=== PATIENT | male | born 1960 | race Caucasian/White ===

== ENCOUNTER 2019-05-27 23:26 | Inpatient (IN) | payer OTHER ==
[~2019-05-27] VITALS: Ht 177.8 cm; Wt 77.6 kg
--- NOTE | ~2019-05-27 | EKG ---
[place] [address] ELECTROCARDIOGRAM REPORT Name: MARCY ABDI Room: [address] ADM IN M.R.#: [id number] Admission: 05/28/19 Attend Phys: Tony Bauer MD Discharge: Date of : 62 Report #: [id number] THIS REPORT FOR: //name// [facility] ED Test Date: 2019-05-28 Test Time: 01:46:48 Pat Name: MARCY ABDI Department: Room: [address] Gender: M Clinical Services Specialist: SIENNA : 1960 Requested By: Leonila Zamudio Order Number: [id number] Reading MD: Measurements Intervals [place] Rate: 91 P: -4 MD: 186 QRS: -35 QRSD: 152 T: 2 QT: 404 QTc: 498 Interpretive Statements Sinus rhythm Right bundle branch block Baseline wander in lead(s) V3,V4,V5 No previous ECG available for comparison [email or web address] By: [id number] Epiphany EpiphMD arnie /EPI
--- NOTE | ~2019-05-27 | EKG ---
[place] [address] ELECTROCARDIOGRAM REPORT Name: MARCY ABDI Room: [address] ADM IN M.R.#: [id number] Admission: 05/28/19 Attend Phys: Tony Bauer MD Discharge: Date of : 62 Report #: [id number] THIS REPORT FOR: //name// [facility] ED Test Date: 2019-05-28 Test Time: 01:46:48 Pat Name: MARCY ABDI Department: Room: [address] Gender: M Picking Supervisor: SIENNA : 1960 Requested By: Leonila Zamudio Order Number: [id number] Reading MD: Measurements Intervals [place] Rate: 91 P: -4 MT: 186 QRS: -35 QRSD: 152 T: 2 QT: 404 QTc: 498 Interpretive Statements Sinus rhythm Right bundle branch block Baseline wander in lead(s) V3,V4,V5 No previous ECG available for comparison [email or web address] By: [id number] [id number] Epiphany EpiphMD arnie /EPI
--- NOTE | ~2019-05-27 | EKG ---
[place] [address] ELECTROCARDIOGRAM REPORT Name: MARCY ABDI Room: [address] ADM IN M.R.#: [id number] Admission: 05/28/19 Attend Phys: Tony Bauer MD Discharge: Date of : 62 Report #: [id number] THIS REPORT FOR: //name// [facility] ED Test Date: 2019-05-28 Test Time: 01:46:48 Pat Name: MARCY ABDI Department: Room: [address] Gender: M Answering Service Telephone Operator: SIENNA : 1960 Requested By: Leonila Zamudio Order Number: [id number] Reading MD: Measurements Intervals [place] Rate: 91 P: -4 OR: 186 QRS: -35 QRSD: 152 T: 2 QT: 404 QTc: 498 Interpretive Statements Sinus rhythm Right bundle branch block Baseline wander in lead(s) V3,V4,V5 No previous ECG available for comparison [email or web address] By: [id number] Epiphany EpiphMD arnie /EPI
[~2019-05-27 23:26] MED LIST: ACCUNEB SO1.25 MG/1 INH; HTN MED; VENTOLIN HFA 1818 GM INH; XANAX 0.5 MG0.5 MG PO
[2019-05-27 23:37] VITALS: BP 132/87
[2019-05-28] VITALS (8 sets, daily range): BP systolic 114–169; BP diastolic 81–113
[2019-05-28 00:05] LABS: ABSOLUTE BASOPHILS 0.1 thou/uL (0.0-0.2); ABSOLUTE EOSINOPHILS 0.1 thou/uL (0.0-0.7); ABSOLUTE LYMPHOCYTES 1.4 thou/uL (0.8-5.3); ABSOLUTE MONOCYTES 0.8 thou/uL (0.0-1.2); ABSOLUTE NEUTROPHILS 1.9 thou/uL (1.6-8.1); BASOPHILS 1.2 %; EOSINOPHILS 1.6 %; HEMATOCRIT 48.5 % (42.0-52.0); HEMOGLOBIN 16.3 gm/dL (14.0-18.0); LYMPHOCYTES 32.9 %; MCH 31.2 pg (26.0-34.0); MCHC 33.6 g/dL (28.0-37.0); MCV 92.8 fL (80.0-100.0); MONOCYTES 18.5 %; MPV 7.7 fl. (7.2-11.1); NUCLEATED RBCS 0 /100WBC; PLATELET COUNT* 106 thou/uL (150-400); POLYS 45.8 %; RBC 5.23 mil/uL (4.50-6.00); RDW-CV 16.5 % (10.5-14.5); WBC 4.2 thou/uL (4.0-11.0)
[2019-05-28 00:12] LABS: CALCIUM 9.2 mg/dL (8.5-10.1); CREATININE 0.8 mg/dL (0.6-1.3); POTASSIUM 3.7 mmol/L (3.5-5.1)
[2019-05-28 00:17] LABS: ALBUMIN 3.9 g/dL (3.4-5.0); TOTAL BILIRUBIN 0.6 mg/dL (<0.1-1.0); TOTAL PROTEIN 7.5 g/dL (6.4-8.2)
--- NOTE | 2019-05-28 05:20 | NUR ---
RECEIVED PT FROM ER PER CART ACCOMPANIED BY CHRISTA BELL AT APPROX 0200. PT IS AWAKE AND ORIENTED X4. VSS ON RA. CARDIAC MONITORING STARTED, TRACING SR/ST WITH A BBB. PT DENIES PAIN/DISCOMFORT/NAUSEA/VOMITING. ADMISSION ASSESSMENT AND ALCOHOL WITHDRAWAL ASSESSMENT DONE- PLS SEE CHARTING. ATIVAN GIVEN PER MAR PER PROTOCOL. PT ADVISED ON THE USE OF CALL LIGHT, PROVIDED ORIENTATION ON ROOM SET UP. CALL LIGHT WITHIN REACH. FALL PRECAUTIONS IN PLACE. CLOSELY MONITORED.
[2019-05-28 05:29] LABS: URINE BILIRUBIN NEGATIVE (Negative); URINE BLOOD NEGATIVE (Negative); URINE CLARITY CLEAR; URINE COLOR YELLOW; URINE GLUCOSE-RANDOM NEGATIVE (Negative); URINE KETONES NEGATIVE (Negative); URINE LEUKOCYTES-REFLEX NEGATIVE (Negative); URINE NITRITE-REFLEX NEGATIVE (Negative); URINE PROTEIN NEGATIVE (Negative); URINE SPECIFIC GRAVITY <= 1.005 (1.005-1.030)
[2019-05-28 05:36] LABS: AMP/METHAMP Negative (Negative); BARBITURATES Negative (Negative); BENZODIAZEPINES POSITIVE (Negative); COCAINE Negative (Negative); METHADONE Negative (Negative); OPIATES Negative (Negative); PCP Negative (Negative); THC Negative (Negative)
[2019-05-28 05:47] LABS: PROTIME 10.1 Seconds (9.20-11.50)
[2019-05-28 05:52] LABS: CALCIUM 8.8 mg/dL (8.5-10.1); PHOSPHORUS* 3.6 mg/dL (2.5-4.9)
--- NOTE | 2019-05-28 17:53 | NUR ---
RECEIVED REPORT FROM JOSEFA BELL. ASSUMED CARE OF PT AROUND 729. PT A&O X4. MUSEUM INFORMATICS SPECIALIST IN PLACE TRACING SR TO SR WITH BBB. AM ASSESSMENT AND VITALS COMPLETED CHARTED. CIWAS'S CHARTED; ATIVAN GIVEN NEEDED. PT HAD VISITOR THIS AFTERNOON. PT WITH VERY POOR APPETITE. UP TO BATHROOM WITH ASSIST X1 TO URINATE; PT ALSO HAD INCONTINENCE X1. BED CHANGED AND PT CLEANED. TELEPSYCH CONSULT COMPLETED, REPORT IN CHART. IV TO LEFT FA INTACT AND INFUSING IVF. PT CURRENTLY SLEEPING IN BED, CALL LIGHT IS WITHIN REACH. FALL PRECAUTIONS ARE IN PLACE. HORULY ROUNDING PERFORMED.
[2019-05-29 00:55] VITALS: BP 154/101
[2019-05-29 04:30] VITALS: BP 155/97
[2019-05-29 05:01] LABS: CALCIUM 9.2 mg/dL (8.5-10.1); CREATININE 0.7 mg/dL (0.6-1.3); MAGNESIUM 1.5 mg/dL (1.8-2.4); PHOSPHORUS* 3.5 mg/dL (2.5-4.9); POTASSIUM 3.5 mmol/L (3.5-5.1)
--- NOTE | 2019-05-29 05:24 | NUR ---
ASSUMED PT CARE APPROX 1930. PT IS AWAKE AND ORIENTED X4. FORGETFUL AT TIMES. CITY JAILER IN PLACE TRACING SR WITH BBB. ASSESSMENT DONE AND CHARTED. CIWAs DONE CHARTED, ATIVAN GIVEN PER PROTOCOL-PLS SEE MAR. PT IS MORE IMPULSIVE AND TRIES TO GET UP WITHOUT ASSISTANCE, HIGH FALL PRECAUTIONS IN PLACE. PT CLOSELY MONITORED AND RE-EDUCATED ON SAFETY AND THE NEED TO CALL BEFORE STANDING UP. PT STILL WITH UNSTABLE GAIT. CALL LIGHT WITHIN REACH. HOURLY ROUNDING DONE FOR PT SAFETY.
[2019-05-29 08:25] VITALS: BP 144/94
--- NOTE | 2019-05-29 09:00 | NUR ---
ASSUMED CARE AFTER REPORT. 0X4. ABLE TO COMMUNICATE NEEDS TO STAFF. CIWA 7-10. PRN ATIVAN PER MAR FOR ANXIETY X2. PATIENT VERBALIZING THAT THIS MED HELPS MANAGE SYMPTOMS. EXPRESSES DESIRE TO SLEEP BUT UNABLE. THERAPEUTIC COMMUNICATION TECHNIQUE: LISTENING. PATIENT EDUCATED ABOUT FALL RISK D/T URINE SPILLAGE ON FLOOR WHEN USING URINAL. PT VOICES HIS PERCEPTION OF ABILITY TO GET UP ON OWN. BED ALARM IN USE. PATIENT VOICES AGREEMENT TO PREVENT FALL. CALL LIGHT IN REACH. HOURLY ROUNDING FOR SAFETY AND PATIENT NEEDS.
--- NOTE | 2019-05-29 10:17 | NUR ---
MET WITH PT, IS DROWSY AND DETOXING. PER CHART, PT LIVES IN [place]. ADMITTED WITH ETOH INTOX. NO FAMILY IN ROOM. LEFT RESOURCES AND COMMUNITY RESOURCES AT BEDSIDE. WILL FOLLOW AND DISCUSS WHEN PT MORE ALERT
--- NOTE | 2019-05-29 11:07 | EKG ---
[place] [address] ELECTROCARDIOGRAM REPORT Name: MARCY ABDI Room: [address] ADM IN M.R.#: [id number] Admission: 05/28/19 Attend Phys: Tony Bauer MD Discharge: Date of : 62 Report #: [id number] THIS REPORT FOR: //name// [facility] ED Test Date: 2019-05-28 Test Time: 01:46:48 Pat Name: MARCY ABDI Department: Room: [address] Gender: M Fast Brim Pouncer: : 1960 Requested By: Leonila Zamudio Order Number: [id number] MD: Marcy Leonard Measurements Intervals [place] Rate: 91 P: -4 AL: 186 QRS: -35 QRSD: 152 T: 2 QT: 404 QTc: 498 Interpretive Statements Sinus rhythm Right bundle branch block Baseline wander in lead(s) V3,V4,V5 No previous ECG available for comparison Electronically Signed On 05-29-2019 11:07:08 CDT by Marcy Leonard [email or web address] <ELECTRONICALLY SIGNED> By: Marcy Leonard MD, [facility] 05/29/19 [id number] [id number] Marcy Leonard MD, [facility] /EPI
[2019-05-29 12:00] VITALS: BP 136/103
[2019-05-29 16:00] VITALS: BP 159/114
[2019-05-29 20:00] VITALS: BP 145/106
--- NOTE | 2019-05-29 20:00 | NUR ---
RECEIVED REPORT AND ASSUMED CARE OF PT, ASSESSMENT COMPLETED. FAMILY AT BEDSIDE. PT SITTING UP IN BED, VERY SOB WITH ANY MOVEMENT. O2 ON AT 2L/NC. TELMETRY ON SHOWING ST. WILL CONT TO MONITOR AND ASSIST NEEDED.
--- NOTE | 2019-05-29 20:00 | NUR ---
RECEIVED REPORT AND ASSUMED CARE OF PT, ASSESSMENT COMPLETED. CWAL SCORE OF 10 DUE TO PT BEING ANXIOUS AND SOMEWHAT AGITATED, WITH VISIBLE TREMORS. WILL GIVE ATIVAN NEEDED. PT DISCUSSION HOW HE WANTS TO DRY OUT BECAUSE HE HAS HAD ENOUGH OF THIS. TELEMETRY ON SHOWING SR WITH BBB. WILL CONT TO MONITOR AND ASSIST NEEDED.
--- NOTE | 2019-05-29 22:00 | NUR ---
PT INCREASING SOB USING ACCESSORY MUSCLES AND EXP WHEEZING. REFUSING TO TAKE BREATHING TX STATING IT CAUSES HER BP TO GO UP. DR NOTIFIED AND AEROSOL CHANGED. ALSO INFORMED OF TEMP 102.2. PT STATES SHE FREQ DOES THIS AT NIGHT.
[2019-05-30] VITALS: BP 136/90
[2019-05-30 04:00] VITALS: BP 145/95
[2019-05-30 04:50] LABS: ALBUMIN 3.5 g/dL (3.4-5.0); CREATININE 0.8 mg/dL (0.6-1.3); MAGNESIUM 1.9 mg/dL (1.8-2.4); PHOSPHORUS* 3.7 mg/dL (2.5-4.9); POTASSIUM 4.2 mmol/L (3.5-5.1); TOTAL BILIRUBIN 0.8 mg/dL (<0.1-1.0); TOTAL PROTEIN 7.2 g/dL (6.4-8.2)
--- NOTE | 2019-05-30 05:57 | NUR ---
AWAKE AND ANXIOUS MOST OF NIGHT. ATIVAN PO GIVEN FREQ. VOIDING WITHOUT DIFFICULTY. TELEMTRY CONT TO SHOW SR WITH BBB. NO CHANGE IN ASSESSMENT. HS GOAL OF SAFETY ACHIEVED. HOURLY ROUNDING OBSERVED.
[2019-05-30 08:00] VITALS: BP 164/111
--- NOTE | 2019-05-30 10:59 | NUR ---
ASSUMED PT CARE REPORT RECEIVED FROM NURSE. PT IS AOX4 SR ON INTERACTIVE GRAPHIC DESIGNER. ON RA. PT DOES NOT HAVE ANY COMPLAINT. TREMORS NOTICED. NO N/V. PT TOOK SHOWER AND ATIVAN WAS GIVEN THIS AM. SINCE THEN PT HAS BEEN TRYING TO SLEEP. NOMORE COMPLAINT. WILL CONTINUE TO MONITOR
--- NOTE | 2019-05-30 11:01 | NUR ---
CIWA OF 5 THIS AM
[2019-05-30 12:02] VITALS: BP 149/101
[2019-05-30 17:00] VITALS: BP 156/117
--- NOTE | 2019-05-30 18:19 | NUR ---
PT SLEPT THIS AFTERNOON AFTER SCHEDULED ATIVAN WAS GIVEN. IV FLUID INFUSING ORDERED.
[2019-05-31 00:23] VITALS: BP 121/85
[2019-05-31 04:08] VITALS: BP 141/92
--- NOTE | 2019-05-31 06:40 | NUR ---
VSS. SEE MAR. SEE CHARTING. FALL PRECAUTIONS IN PLACE. HOURLY ROUNDING FOR SAFETY.
[2019-05-31 08:00] VITALS: BP 132/88
[2019-05-31 12:08] VITALS: BP 144/105
[2019-05-31 16:29] VITALS: BP 140/87
[2019-06-01] VITALS: BP 138/94
[2019-06-01 04:00] VITALS: BP 119/82
[2019-06-01 05:03] LABS: HEMATOCRIT 46.5 % (42.0-52.0); HEMOGLOBIN 15.7 gm/dL (14.0-18.0); MCH 31.6 pg (26.0-34.0); MCHC 33.8 g/dL (28.0-37.0); MCV 93.7 fL (80.0-100.0); MPV 8.8 fl. (7.2-11.1); RBC 4.97 mil/uL (4.50-6.00); RDW-CV 15.5 % (10.5-14.5); WBC 4.8 thou/uL (4.0-11.0)
[2019-06-01 05:43] LABS: ALBUMIN 3.2 g/dL (3.4-5.0); CALCIUM 9.8 mg/dL (8.5-10.1); CREATININE 0.9 mg/dL (0.6-1.3); MAGNESIUM 1.9 mg/dL (1.8-2.4); POTASSIUM 4.4 mmol/L (3.5-5.1); TOTAL BILIRUBIN 0.7 mg/dL (<0.1-1.0)
--- NOTE | 2019-06-01 06:50 | NUR ---
PT REPORTED INCREASE ANXIETY THROUGH THE NIGHT, PROVIDER NOTIFED AND ORDERS RECIEVED. VSS. SEE MAR. SEE CHARTING. FALL PRECAUTIONS IN PLACE. HOURLY ROUNDING FOR SAFETY.
[2019-06-01 08:00] VITALS: BP 133/88
[2019-06-01] MEDS ORDERED: NALTREXONE HCL50 MG PO (10:16)
[2019-06-01] MEDS ORDERED: TRAZODONE HCL100 MG PO (10:16)
[2019-06-01] MEDS ORDERED: PRENATAL PO (10:16)
[2019-06-01] MEDS ORDERED: VITAMIN B-1100 M1 PO (10:16)
[2019-06-01] MEDS ORDERED: HYDROXYZINE PAM50 MG PO (10:16)
[2019-06-01 11:54] VITALS: BP 142/96
--- NOTE | 2019-06-01 14:56 | NUR ---
ASSUMED PT CARE AT 0800, AOX4, UP SBA, O2 SAT 90'S RA. TRACING SINUS TACH ON STUDENT COUNSELLOR. PT ANXIOUS, SCORED 5 ON CIWA. PT HAD TELEPSYCHE CONSULT FOR REEVALUATION. PT COMPLAINS OF CONSTIPATION, LAXATIVE GIVEN, HAD BM TODAY. VSS, AM ASSESSMENT CHARTED. MEDS GIVEN PER MAR. HOURLY ROUNDING. CALL LIGHT WITHIN REACH. WILL CONTINUE TO MONITOR.
[2019-06-01 15:50] VITALS: BP 142/102
--- NOTE | 2019-06-01 18:16 | NUR ---
PT STILL ST/SR ON TELE. O2 SAT 90'S RA. PT HAD TELEPSYCHE CONSULT FOR REEVALUATION. PT AND OT ON BOARD. GAIT STILL UNSTEADY, SBA. PT COMPLAINS OF CONSTIPATION, LAXATIVE GIVEN. HAD BM TODAY. VSS, ALL NEED MET AT THIS TIME. WILL CONTINUE TO MONITOR.
[2019-06-02] VITALS: BP 108/72
--- NOTE | 2019-06-02 07:01 | NUR ---
VSS. SEE MAR. SEE CHARTING. FALL PRECAUTIONS IN PLACE. HOURLY ROUNDING FOR SAFETY.
[2019-06-02 08:00] VITALS: BP 160/100
--- NOTE | 2019-06-02 11:40 | NUR ---
ASSUMED PT CARE AT 0800, AOX4, UP SBA, O2 SAT 90'S RA. PT STILL ANXIOUS, HR HIGH. DENIES PAIN. TRACING SINUS TACH/ SR ON TELE. VSS, AM ASSESSMENT CHARTED. MEDS GIVEN PER MAR. HOURLY ROUNDING. WILL CONTINUE TO MONITOR.
[2019-06-02 12:13] VITALS: BP 140/86
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
[2019-06-02 15:41] VITALS: BP 138/90
--- NOTE | 2019-06-02 18:43 | NUR ---
AOX4, SBA, O2 SAT 90'S RA. PT CHANGE TO M/S STATUS. PT STILL ANXIOUS, CONCERN WITH HIS UNSTEADY GAIT. PHYSICAL THERAPIST ONBOARD. VSS, HOURLY ROUNDING, CALL LIGHT WITHIN REACH. WILL CONTINUE TO MONITOR
[2019-06-02 20:35] VITALS: BP 122/88
[2019-06-03 03:40] LABS: HEMATOCRIT 45.3 % (42.0-52.0); HEMOGLOBIN 15.3 gm/dL (14.0-18.0); MCH 31.8 pg (26.0-34.0); MCHC 33.8 g/dL (28.0-37.0); MCV 94.1 fL (80.0-100.0); NUCLEATED RBCS 0 /100WBC; PLATELET COUNT* 200 thou/uL (150-400); RBC 4.81 mil/uL (4.50-6.00); RDW-CV 15.6 % (10.5-14.5); WBC 5.6 thou/uL (4.0-11.0)
[2019-06-03 03:55] LABS: CALCIUM 9.1 mg/dL (8.5-10.1); CREATININE 0.9 mg/dL (0.6-1.3); PHOSPHORUS* 5.1 mg/dL (2.5-4.9); POTASSIUM 4.4 mmol/L (3.5-5.1)
[2019-06-03 05:15] LABS: ABSOLUTE EOSINOPHILS 0.3 thou/uL (0.0-0.7); ABSOLUTE LYMPHOCYTES 2.2 thou/uL (0.8-5.3); ABSOLUTE MONOCYTES 1.4 thou/uL (0.0-1.2); ABSOLUTE NEUTROPHILS 1.7 thou/uL (1.6-8.1); PLATELET ESTIMATE ADEQUATE
[2019-06-03 05:16] LABS: ANISOCYTOSIS 1+; POIKILOCYTOSIS 1+
--- NOTE | 2019-06-03 06:14 | NUR ---
TRANSFERRED TO FLOOR AT 2200. REPORTED NO PAIN OR NEED FOR PRN ATIVAN. PATIENT SLEPT THROUGH NIGHT. SHOWED NO ANXIETY THROUGH NIGHT. WAS UP ONCE STANDBY ASSIST TO BATHROOM. PATIENT TO DC TODAY 06/03. CIWA SCORE WAS 3. STILL ON FALL RISK PRECAUTIONS. BED ALARM ON ALL SHIFT.
[2019-06-03 08:10] VITALS: BP 109/74
[2019-06-03 12:46] VITALS: BP 109/74
--- NOTE | 2019-06-03 16:37 | NUR ---
PT DISCHARGED AND LEFT UNIT AT 1627 WITH NURSING STAFF TO HOME. IV OUT. PRESCRIPTIONS GIVEN. PT STABLE UPON DISCHARGE.
== END 2019-06-03 16:27 | disposition home or self-care (01) | DRG 897 ==
LOC: M.ERS 23:26 → M.TBA-ER 05-28 01:09 → M.2W 05-28 01:09 → M.ORTHSURG 06-02 21:41
PROVIDERS: Emergency Medicine; Family Medicine; Internal Medicine; ADMIT Internal Medicine
DX: F10.129 Alcohol abuse with intoxication, unspecified (principal); R74.0 Nonspecific elevation of levels of transaminase and lactic acid dehydrogenase [LDH]; E83.42 Hypomagnesemia; D69.6 Thrombocytopenia, unspecified; F41.9 Anxiety disorder, unspecified; K59.00 Constipation, unspecified; J44.9 Chronic obstructive pulmonary disease, unspecified; F32.9 Major depressive disorder, single episode, unspecified; Z81.1 Family history of alcohol abuse and dependence; Z79.899 Other long term (current) drug therapy